=== PATIENT | female | born 1975 | race Asian ===

== ENCOUNTER → 2016-08-17 | Outpatient (CLI) | payer OTHER ==
[~2016-08-17] MED LIST: AMLODIPINE BESYL5 MG PO; HYDROCHLOROTHIA25 MG PO; LIPITOR20 MG PO
--- NOTE | ~2016-08-17 | EKG ---
PATIENT: MALENA STRAUSS UNIT #: [id number] Ventricular Rate: 60 BPM Atrial Rate: 60 BPM P-R Interval: 156 ms QRS Duration: 92 ms Q-T Interval: 422 ms QTC Calculation(Bezet): 422 ms P [place]: 5 degrees Calculated R [place]: 75 degrees Calculated T [place]: 51 degrees Diagnosis Line: Normal sinus rhythm Diagnosis Line: Normal ECG Diagnosis Line: No previous ECGs available Diagnosis Line: Confirmed by ROXANA HUNT MD ([id number]) on Diagnosis Line: 08/18/2016 7:58:59 AM INTERPRETING MD: GILBERT MAHER
[2016-08-17 11:37] LABS: BUN/CREATININE RATIO 18.33; CALCIUM SERUM 8.8 mg/dL (8.4-10.2); CREATININE SERUM 0.6 mg/dL (0.6-1.4); GLOM FILT RATE Estimated 111.6 mL/min (>60); POTASSIUM 3.4 mmol/L (3.5-5.1)
== END | disposition home or self-care (01) ==
LOC: CAMB 05:55 → EDSTATUS 08:00
PROVIDERS: Surgery
DX: Z01.818 Encounter for other preprocedural examination (principal); D17.1 Benign lipomatous neoplasm of skin and subcutaneous tissue of trunk
CPT/HCPCS: 36415; 80048; 93005

== ENCOUNTER → 2016-08-22 | Day surgery (SDC) | payer OTHER ==
--- NOTE | ~2016-08-22 | OR ---
Unit #: [id number] #: [id number] Patient: MALENA STRAUSS [id number] [address] [place], [place] [address] [id number] MR#: [id number] NAME: MALENA STRAUSS ROOM: Date of Procedure: 08/22/2016 Admission Date: 08/22/2016 Surgeon: Moses Julian Jr., M.D. : 1975 Attending Physician: Moses Julian Jr., M.D. Primary Care Physician: Brie Wu A.P.R.N. OPERATIVE REPORT INDICATIONS FOR PROCEDURE The patient is a 41-year-old patient from [facility] who recently presented to the office complaining of a mass of the right axilla as well as smaller mass of the left forearm. These appeared to be lipomatous masses. She has desired removal of these. She was brought in this time for removal of these under general anesthesia, also supplemental local. PREOPERATIVE DIAGNOSES Lipomatous mass of the right axilla and left posterior forearm. POSTOPERATIVE DIAGNOSES Lipomatous mass of the right axilla and left posterior forearm. The mass of the right axilla was approximately 10 to 12 cm in diameter. The one of the posterior forearm on the left was approximately 3 cm in diameter. ANESTHESIA General with LMA and 0.5% Marcaine with epinephrine locally. PROCEDURE PERFORMED Excision of lipomatous mass of the right axilla and left forearm. DESCRIPTION OF PROCEDURE The patient was positioned in supine position. After being anesthetized, she was prepped and draped in routine fashion for removal of the mass of the right axilla. A transverse incision of approximately 3 to 4 inches in length was made over the mass and this was carried down through subcutaneous tissue to the area of the mass, which appeared to be a lipomatous mass. It was dissected free from the surrounding tissue and down to the deeper tissue in the axillary area, but not into the axillary fat pad, with a #10 blade scalpel. After it was completely removed, hemostasis was achieved with Bovie cautery. Specimen was sent to pathology and the deeper tissue was approximated with interrupted 3-0 Vicryl sutures. Skin edges were approximated with stainless-steel skin clips and skin stapling device. Sterile compressive dressing was applied externally. The patient was re-prepped and draped for excision of the mass of the left posterior forearm. After she was prepped and draped, she was locally anesthetized with 0.5% Marcaine with epinephrine and a vertical incision was made approximately 2 to 3 cm in length. Upon opening the skin, the lipomatous mass extruded through the wound. It was dissected free of the surrounding tissue, removed and sent to pathology. Hemostasis was achieved with Bovie cautery and after total hemostasis was noted, the subcutaneous tissue was approximated with interrupted 3-0 Unit #: [id number] #: [id number] Patient: MALENA STRAUSS Vicryl sutures. Skin edges were approximated with stainless-steel skin clips and skin stapling device. Sterile dressings were applied externally. Estimated blood loss was minimal for both procedures. There were no drains used. No complications. The patient received less than 1000 mL of crystalloid solution during the procedure. The patient was taken to recovery room in stable vital signs in satisfactory condition. Dictated by... Moses Julian Jr., M.Hussain. MERLY/stephen TD: 08/23/2016 02:39 JOB #: [id number] OPERATIVE REPORT Page 1 of 1 X Moses Julian MD X PROCEDURE OPERATIVE NOTE
== END | disposition home or self-care (01) ==
LOC: CSUR 05:36
DX: D17.22 Benign lipomatous neoplasm of skin and subcutaneous tissue of left arm (principal); R22.31 Localized swelling, mass and lump, right upper limb; I10 Essential (primary) hypertension; E78.00 Pure hypercholesterolemia, unspecified; E78.5 Hyperlipidemia, unspecified; Z79.899 Other long term (current) drug therapy; Z88.8 Allergy status to other drugs, medicaments and biological substances; Z98.890 Other specified postprocedural states
CPT/HCPCS: 84703; 88305; J1885; J2250; J2405; J3010